=== PATIENT | female | born 1970 | race Caucasian/White ===

== ENCOUNTER 2017-06-07 19:37 | Emergency (ER) | payer OTHER ==
[2017-06-07 19:52] VITALS: BP 135/95; PULSE 89; TEMP 98.8; BMI 36.6
[2017-06-07] MEDS ORDERED: ASPIRIN 81 MG CHEWABLE TABLETS PO ONE (20:37)
--- NOTE | 2017-06-07 20:37 | PDOC ---
History of Present Illness - General History Source: Patient Exam Limitations: No Limitations <Rosa Pickens - Last Filed: 06/07/17 22:02> <Candie Maya - Last Filed: 06/08/17 02:30> - General Chief Complaint: Blood Pressure Problem Stated Complaint: Blood Pressure Problem Time Seen by Provider: 06/07/17 20:12 - History of Present Illness Initial Comments: 06/07/17 22:00 The patient is a 46 year old female with past medical history of NIDDM and hypertension who presents to the ED with complaints of chest pain that began today. She locates the pain to her sternum and states that it is non-radiating but also complains of pain in between her shoulder blades. It is not associated with any pain to her left arm, neck or jaw. She also complains of burning in her epigastrium and states that she has a history of acid reflux. The patient denies any nausea, vomiting, diarrhea, cough, SOB, urinary symptoms. (Rosa Pickens) Past History <GaryirisRosa - Last Filed: 06/07/17 22:02> - Past Medical History Asthma: No Cancer: No Cardiac Disorders: No Diabetes: Yes HTN: Yes Seizures: No Thyroid Disease: No - Psycho/Social/Smoking Cessation Hx Anxiety: No Suicidal Ideation: No Smoking History: Former smoker Have you smoked in the past 12 months: No Information on smoking cessation initiated: No Hx Alcohol Use: No Drug/Substance Use Hx: No Substance Use Type: None Hx Substance Use Treatment: No <Candie Maya - Last Filed: 06/08/17 02:30> - Past Medical History Allergies/Adverse Reactions: Allergies Allergy/AdvReac Type Severity Reaction Status Date / Time No Known Allergies Allergy Verified 06/07/17 19:52 Home Medications: Ambulatory Orders Metformin HCl [Glucophage -] 500 mg PO DAILY 03/12/14 Chlorthalidone 25 mg PO DAILY 06/07/17 Lisinopril 5 mg PO DAILY 06/07/17 Review of Systems - Review of Systems Able to Perform ROS?: Yes All Other Systems: Reviewed and Negative <Rosa Pickens - Last Filed: 06/07/17 22:02> <Candie Maya - Last Filed: 06/08/17 02:30> - Review of Systems Comments:: 06/07/17 22:00 CONSTITUTIONAL: Absent: fever, chills, diaphoresis, generalized weakness, malaise, loss of appetite HEENT: Absent: rhinorrhea, nasal congestion, throat pain, throat swelling, difficulty swallowing, mouth swelling, ear pain, eye pain, visual Changes CARDIOVASCULAR: Present: chest pain, pain in between shoulder blades Absent: syncope, palpitations, irregular heart rate, lightheadedness, peripheral edema RESPIRATORY: Absent: cough, shortness of breath, dyspnea with exertion, orthopnea, wheezing, stridor, hemoptysis GASTROINTESTINAL: Absent: abdominal pain, abdominal distension, nausea, vomiting, diarrhea, constipation, melena, hematochezia GENITOURINARY: Absent: dysuria, frequency, urgency, hesitancy, hematuria, flank pain, genital pain MUSCULOSKELETAL: Absent: joint swelling SKIN: Absent: rash, itching, pallor HEMATOLOGIC/IMMUNOLOGIC: Absent: easy bleeding, easy bruising, lymphadenopathy, frequent infections ENDOCRINE: Absent: unexplained weight gain, unexplained weight loss, heat intolerance, cold intolerance NEUROLOGIC: Absent: headache, focal weakness or paresthesias, dizziness, unsteady gait, seizure, mental status changes, bladder or bowel incontinence PSYCHIATRIC: Absent: anxiety, depression, suicidal or homicidal ideation, hallucinations. (Rosa Pickens) *Physical Exam <Rosa Pickens - Last Filed: 06/07/17 22:02> <Candie Maya - Last Filed: 06/08/17 02:30> - Vital Signs Last Vital Signs Temp Pulse Resp BP Pulse Ox 98.8 F 89 18 135/95 100 06/07/17 19:48 06/07/17 19:48 06/07/17 19:48 06/07/17 19:48 06/07/17 19:48 - Physical Exam Comments: 06/07/17 22:01 GENERAL: Well developed, well nourished. Awake and alert. No acute distress. HEENT: Normocephalic, atraumatic. PERRLA, EOMI. No conjunctival pallor. Sclera are non- icteric. Moist mucous membranes. Oropharynx is clear. NECK: Supple. Full ROM. No JVD. Carotid pulses 2+ and symmetric, without bruits. No thyromegaly. No lymphadenopathy. CARDIOVASCULAR: Regular rate and rhythm. No murmurs, rubs, or gallops. Distal pulses are 2+ and symmetric. PULMONARY: No evidence of respiratory distress. Lungs clear to auscultation bilaterally. No wheezing, rales or rhonchi. ABDOMINAL: Soft. Non-tender. Non-distended. No rebound or guarding. No organomegaly. Normoactive bowel sounds. MUSCULOSKELETAL Normal range of motion at all joints. No bony deformities or tenderness. No CVA tenderness. EXTREMITIES: No cyanosis. No clubbing. No edema. No calf tenderness. SKIN: Warm and dry. Normal capillary refill. No rashes. No jaundice. NEUROLOGICAL: Alert, awake, appropriate. Cranial nerves 2-12 intact. No deficits to light touch and temperature in face, upper extremities and lower extremities. No motor deficits in the in face, upper extremities and lower extremities. Normoreflexic in the upper and lower extremities. Normal speech. Toes are down-going bilaterally. Gait is normal without ataxia. PSYCHIATRIC: Cooperative. Good eye contact. Appropriate mood and affect. (Rosa Pickens) Heart Score/ECG Review <[facility] - Last Filed: 06/07/17 22:02> <Candie Maya - Last Filed: 06/08/17 02:30> - ECG Intrepretation Comment:: 06/07/17 22:02 Obtained at 19:57 Normal sinus at 80 bpm Unchanged from February 2014 ([facility]) ED Treatment Course - LABORATORY CBC & Chemistry Diagram: 06/07/17 20:57 06/07/17 20:57 <CelioRosa - Last Filed: 06/07/17 22:02> - LABORATORY CBC & Chemistry Diagram: 06/07/17 20:57 06/07/17 21:55 <Candie Maya - Last Filed: 06/08/17 02:30> - ADDITIONAL ORDERS Additional order review: Laboratory Results 06/08/17 06/07/17 06/07/17 01:24 21:55 21:55 INR D-Dimer Sodium Potassium Chloride Carbon Dioxide Anion Gap BUN Creatinine Creat Clearance w eGFR Random Glucose Calcium Magnesium Total Bilirubin AST ALT Alkaline Phosphatase Creatine Kinase 53 71 Troponin I < 0.02 < 0.02 B-Natriuretic Peptide Total Protein Albumin Lipase 69 L Serum , Qual 06/07/17 06/07/17 06/07/17 21:55 20:57 20:57 INR D-Dimer Sodium 139 Cancelled Potassium 3.9 Cancelled Chloride 101 Cancelled Carbon Dioxide 27 Cancelled Anion Gap 11 Cancelled BUN 10 Cancelled Creatinine 0.7 D Cancelled Creat Clearance w eGFR > 60 Cancelled Random Glucose 127 H D Cancelled Calcium 8.8 Cancelled Magnesium Cancelled Total Bilirubin 0.5 Cancelled AST 19 Cancelled ALT 29 D Cancelled Alkaline Phosphatase 110 Cancelled Creatine Kinase Cancelled Troponin I Cancelled B-Natriuretic Peptide Cancelled Total Protein 8.4 H Cancelled Albumin 3.8 Cancelled Lipase Serum , Qual Negative 06/07/17 20:57 INR 1.17 H D-Dimer 282 H Sodium Potassium Chloride Carbon Dioxide Anion Gap BUN Creatinine Creat Clearance w eGFR Random Glucose Calcium Magnesium Total Bilirubin AST ALT Alkaline Phosphatase Creatine Kinase Troponin I B-Natriuretic Peptide Total Protein Albumin Lipase Serum , Qual 06/07/17 20:57 RBC 4.44 MCV 84.9 MCHC 33.9 RDW 13.1 MPV 9.0 Neutrophils % 69.3 Lymphocytes % 23.2 Monocytes % 5.4 Eosinophils % 1.1 Basophils % 1.0 - RADIOLOGY Radiology Studies Ordered: Category Date Time Status CHEST PA & LAT [RAD] Stat Radiology 06/07/17 22:51 Taken - Medications Given in the ED: ED Medications Discontinued Medications Generic Name Dose Route Start Last Admin Trade Name Jethro PRN Reason Stop Dose Admin Al Hydroxide/Mg Hydroxide 30 ml 06/07/17 21:54 06/07/17 21:59 Mylanta Oral Suspension - PO 06/07/17 21:55 30 ml ONCE ONE Administration Aspirin 162 mg 06/07/17 20:37 06/07/17 20:57 Asa - PO 06/07/17 20:38 162 mg ONCE ONE Administration Famotidine/Sodium Chloride 50 mls @ 100 mls/hr 06/08/17 00:57 06/08/17 01:29 Pepcid 20 Mg Premixed Ivpb - IVPB 06/08/17 01:26 Not Given ONCE ONE Famotidine/Sodium Chloride 50 mls @ 100 mls/hr 06/08/17 01:28 06/08/17 01:29 Pepcid 20 Mg Premixed Ivpb - IVPB 06/08/17 01:57 100 mls/hr ONCE ONE Administration *DC/Admit/Observation/Transfer <Rosa Pickens - Last Filed: 06/07/17 22:02> <Candie Maya - Last Filed: 06/08/17 02:30> Diagnosis at time of Disposition: Chest pressure Gastroesophageal reflux disease Qualifiers: Esophagitis presence: without esophagitis Qualified Code(s): K21.9 - Gastro- esophageal reflux disease without esophagitis - Discharge Dispostion Disposition: HOME Condition at time of disposition: Stable - Patient Instructions Printed Discharge Instructions: DI for Atypical Chest Pain, DI for Gastroesophageal Reflux Disease (GERD) Additional Instructions: please followup with your primary physician - Attestations Scribe Attestion: 06/07/17 22:01 Documentation prepared by Rosa Pickens, acting as medical receptionist biller for Candie Maya MD/. (Rosa Pickens)
[2017-06-07] MEDS ORDERED: ASPIRIN 81 MG CHEWABLE TABLETS ONE (20:48)
[2017-06-07 21:14] LABS: EOSINOPHIL 1.1 % (0-4.5); MCH 28.8 pg (25.7-33.7); MCHC 33.9 g/dl (32.0-36.0); MEAN CELL VOLUME 84.9 fl (80-96); NEUTROPHILS 69.3 % (42.8-82.8); PLATELET COUNT 256 K/MM3 (134-434); RDW 13.1 % (11.6-15.6); WHITE BLOOD COUNT 9.7 K/mm3 (4.0-10.0)
[2017-06-07 21:26] LABS: INR 1.17 (0.82-1.09); PROTHROMBIN TIME (PATIENT) 12.9 SEC (9.98-11.88)
[2017-06-07] MEDS ORDERED: MAG HYDROX/AL HYDROX/SIMETH 30 ML UNIT-DOSE CUP PO ONE (21:54)
[2017-06-07] MEDS ORDERED: MAG HYDROX/AL HYDROX/SIMETH 30 ML UNIT-DOSE CUP ONE (21:57)
[2017-06-07 22:41] LABS: ALBUMIN 3.8 g/dl (3.4-5.0); ANION GAP 11 (8-16); BILIRUBIN,TOTAL 0.5 mg/dL (0.2-1.0); CALCIUM 8.8 mg/dL (8.5-10.1); CO2 27 mmol/L (21-32); CREATININE 0.7 mg/dL (0.55-1.02); GLUCOSE,RANDOM 127 mg/dL (74-106); SGPT/ALT 29 U/L (12-78); TOT PROT 8.4 g/dl (6.4-8.2)
[2017-06-07 22:44] LABS: ALK PHOS 110 U/L (45-117)
[2017-06-07 22:50] LABS: SGOT/AST 19 U/L (15-37)
[2017-06-07 22:51] LABS: CPK 71 IU/L (26-192); TROPONIN I < 0.02 ng/ml (0.00-0.05)
[2017-06-08] MEDS ORDERED: FAMOTIDINE 20 MG/50 ML IVPB 50 ML IVPB ONE ×2 (00:57→01:28)
[2017-06-08 02:03] LABS: CPK 53 IU/L (26-192)
[2017-06-08 02:04] LABS: TROPONIN I < 0.02 ng/ml (0.00-0.05)
--- NOTE | 2017-06-08 14:42 | EKG ---
Test Reason : Blood Pressure : / mmHG Vent. Rate : 080 BPM Atrial Rate : 080 BPM P-R Int : 152 ms QRS Dur : 084 ms QT Int : 378 ms P-R-T Axes : 047 006 014 degrees QTc Int : 435 ms NORMAL SINUS RHYTHM NORMAL ECG WHEN COMPARED WITH ECG OF 26-MAR-2014 12:55, NO SIGNIFICANT CHANGE WAS FOUND Confirmed by CLARITZA FAN MD ([id number]) on 06/08/2017 2:41:49 PM Referred By: Confirmed By:CLARITZA FAN MD
== END 2017-06-08 02:45 | disposition home or self-care (01) ==
LOC: JER 19:37
PROC: 3E033GC Introduction of Other Therapeutic Substance into Peripheral Vein, Percutaneous Approach (ICD-10-PCS; principal; 2017-06-07)
DX: R07.89 Other chest pain (principal); K21.9 Gastro-esophageal reflux disease without esophagitis; I10 Essential (primary) hypertension; E11.9 Type 2 diabetes mellitus without complications; Z87.891 Personal history of nicotine dependence; Z79.84 Long term (current) use of oral hypoglycemic drugs
CPT/HCPCS: 36415; 71020-TC; 80053; 83690; 84484; 84703; 85025; 85379; 85610; 93005; 93010; 99282-25

== ENCOUNTER 2019-07-23 22:11 | Emergency (ER) | payer OTHER ==
--- NOTE | 2019-07-23 22:39 | PDOC ---
History of Present Illness - General Stated Complaint: LEG PAIN Time Seen by Provider: 07/23/19 22:34 - History of Present Illness Initial Comments: 07/24/19 00:14 49 y/o hx of HTN and diabetes, presents to the ED with left leg pain and associated dizziness. She has had this pain on and off for 3-4 months now and having received multiple work ups from pcp's office, received no diagnosis and was told she had no issues. The pain started after she took a long walk earlier this morning and persisted after waking up from sleep. Pain is intermittent and throbbing and is located behind the left knee and dorsal surface of left foot. rates it as a 7/10. Exacerbated by movement or walking around.No numbness and tingling in her legs, but occasional tingling in her hands. She states that when she has pain " she feels like there is a problem with her circulation"She denies any hx of blood clots, fevers. chills, rash, trauma, loc. 07/24/19 00:18 Past History - Past Medical History Allergies/Adverse Reactions: Allergies Allergy/AdvReac Type Severity Reaction Status Date / Time No Known Allergies Allergy Verified 06/07/17 19:52 Home Medications: Ambulatory Orders metFORMIN HCL [Glucophage -] 1,000 mg PO BID 03/12/14 Lisinopril 5 mg PO DAILY 06/07/17 Asthma: No Cancer: No Cardiac Disorders: No COPD: No Diabetes: Yes HTN: Yes Seizures: No Thyroid Disease: No - Immunization History Immunization Up to Date: Yes - Psycho Social/Smoking Cessation Hx Smoking History: Unknown if ever smoked Have you smoked in the past 12 months: No Hx Alcohol Use: No Drug/Substance Use Hx: No Substance Use Type: None Hx Substance Use Treatment: No Review of Systems - Review of Systems Constitutional: No: Chills, Fever HEENTM: No: Eye Pain, Blurred Vision Respiratory: No: Cough, Shortness of Breath Cardiac (ROS): No: Chest Pain ABD/GI: No: Constipated, Diarrhea : No: Burning, Dysuria Musculoskeletal: No: Back Pain Integumentary: No: Bruising Neurological: No: Headache, Numbness *Physical Exam - Vital Signs Last Vital Signs Temp Pulse Resp BP Pulse Ox 98.1 F 85 18 126/80 100 07/23/19 22:30 07/23/19 22:30 07/23/19 22:30 07/23/19 22:30 07/23/19 22:30 - Physical Exam Comments: 07/24/19 00:21 GENERAL: Awake, alert, and fully oriented, in no acute distress HEAD: No signs of trauma, normocephalic, atraumatic EYES: PERRLA, EOMI, sclera anicteric, conjunctiva clear ENT: Auricles normal inspection, hearing grossly normal, nares patent, oropharynx clear without exudates. Moist mucosa NECK: Normal ROM, supple, no lymphadenopathy, JVD, or masses LUNGS: No distress, speaks full sentences, clear to auscultation bilaterally HEART: Regular rate and rhythm, normal S1 and S2, no murmurs, rubs or gallops, peripheral pulses normal and equal bilaterally. ABDOMEN: Soft, nontender, normoactive bowel sounds. No guarding, no rebound. No masses EXTREMITIES : Normal inspection, Normal range of motion, no edema. No clubbing or cyanosis ambulating normally. 2+ pedal pulses bilaterally. foot is warm. no diminished sensation. strength 5/5. tenderness to palpation of left calf. NEUROLOGICAL: Cranial nerves II through XII grossly intact. Normal speech, normal gait, no focal sensorimotor deficits.normal finger to nose. SKIN: Warm, Dry, normal turgor, no rashes or lesions noted ED Treatment Course - LABORATORY CBC & Chemistry Diagram: 07/24/19 00:00 07/24/19 00:00 Medical Decision Making - Medical Decision Making 07/24/19 00:22 49 y/o hx of HTN and diabetes, presents to the ED with left leg pain and associated dizziness. EKG, cbc, cmp, troponin, duplex us of left leg EKG: normal sinus rhythm, normal EKG duplex u/s of leg = no DVT's 07/26/19 09:44 *DC/Admit/Observation/Transfer Diagnosis at time of Disposition: Leg pain Qualifiers: Laterality: left Qualified Code(s): M79.605 - Pain in left leg - Discharge Dispostion Disposition: HOME Condition at time of disposition: Stable Decision to Admit order: No - Referrals - Patient Instructions Printed Discharge Instructions: DI for Leg Pain Additional Instructions: Keep your u/s appointment on Tuesday. Follow up with your primary care providers. Return to the ER if you feel worse, or develop fevers, chills, nausea, vomiting - Post Discharge Activity Discharge - Discharge Information Problems reviewed: Yes Clinical Impression/Diagnosis: Leg pain Qualifiers: Laterality: left Qualified Code(s): M79.605 - Pain in left leg Condition: Stable Disposition: HOME - Admission No - Follow up/Referral - Patient Discharge Instructions Patient Printed Discharge Instructions: DI for Leg Pain Additional Instructions: Keep your u/s appointment on Tuesday. Follow up with your primary care providers. Return to the ER if you feel worse, or develop fevers, chills, nausea, vomiting - Post Discharge Activity
[2019-07-23 23:04] VITALS: TEMP 98.1; BMI 36.6
[2019-07-24 00:15] LABS: BASO % 0.1 % (0-2.0); HEMATOCRIT 35.2 % (32.4-45.2); HEMOGLOBIN 11.6 GM/dL (10.7-15.3); LYMPH % 21.6 % (8-40); MCH 27.9 pg (25.7-33.7); MCHC 32.8 g/dl (32.0-36.0); MEAN CELL VOLUME 85.1 fl (80-96); MEAN PLT VOLUME 9.6 fl (7.5-11.1); MONO % 6.2 % (3.8-10.2); NEUT % 69.1 % (42.8-82.8); PLATELET COUNT 214 K/MM3 (134-434); RBC 4.14 M/mm3 (3.60-5.2); RDW 13.8 % (11.6-15.6); WHITE BLOOD COUNT 8.1 K/mm3 (4.0-10.0)
[2019-07-24 00:48] LABS: ALBUMIN 3.8 g/dl (3.4-5.0); BILIRUBIN,TOTAL 0.8 mg/dL (0.2-1); BLOOD UREA NITROGEN 14.3 mg/dL (7-18); CALCIUM 8.9 mg/dL (8.5-10.1); CREATININE 0.9 mg/dL (0.55-1.3); POTASSIUM 3.5 mmol/L (3.5-5.1); TOT PROT 7.9 g/dl (6.4-8.2)
--- NOTE | 2019-07-24 00:49 | PDOC ---
Attending Attestation - Resident Resident Name: Lopez Thomson - ED Attending Attestation I have performed the following: I have examined & evaluated the patient, The case was reviewed & discussed with the resident, I agree w/resident's findings & plan, Exceptions are as noted - HPI HPI: 07/24/19 00:42 this 49 yo female p/w intermittent left leg pain behind the her knee denies any trauma the leg is warm,good cap refill, no erythema,sensation intact - Physicial Exam PE: 07/24/19 01:[address] Gaetano Medeiros's physical exam - Medical Decision Making 07/24/19 01:04 review of labs shows there is a slight elevation in her LFTs. She states that on Tuesday she was already scheduled for an abdominal ultrasound. Doppler of her left leg is negative for any deep vein thrombosis pt discharged home
[2019-07-24 01:33] VITALS: BP 121/81; PULSE 74
--- NOTE | 2019-07-24 10:58 | EKG ---
Test Reason : Blood Pressure : / mmHG Vent. Rate : 079 BPM Atrial Rate : 079 BPM P-R Int : 138 ms QRS Dur : 082 ms QT Int : 396 ms P-R-T Axes : 039 -02 006 degrees QTc Int : 454 ms NORMAL SINUS RHYTHM NORMAL ECG WHEN COMPARED WITH ECG OF 07-JUN-2017 19:57, NO SIGNIFICANT CHANGE WAS FOUND Confirmed by Angel Pandya ([id number]) on 07/24/2019 10:57:44 AM Referred By: Confirmed By:Angel Pandya
== END 2019-07-24 01:29 | disposition home or self-care (01) ==
LOC: JER 22:11
DX: M79.605 Pain in left leg (principal); I10 Essential (primary) hypertension; E11.9 Type 2 diabetes mellitus without complications; Z79.84 Long term (current) use of oral hypoglycemic drugs
CPT/HCPCS: 36415; 80053; 84484; 85025; 93005; 93010; 93971-TC; 99283-25

== ENCOUNTER 2019-11-21 17:05 | Emergency (ER) | payer OTHER ==
[2019-11-21 17:19] VITALS: BP 124/85; PULSE 92; TEMP 98; BMI 34.7
[2019-11-21] MEDS ORDERED: SODIUM CHLORIDE 1,000 ML IV STA (18:20)
[2019-11-21 18:43] LABS: BASO % 0.7 % (0-2.0); EOS % 1.9 % (0-4.5); HEMATOCRIT 38.9 % (32.4-45.2); HEMOGLOBIN 12.8 GM/dL (10.7-15.3); LYMPH % 23.6 % (8-40); MCH 26.9 pg (25.7-33.7); MEAN CELL VOLUME 81.6 fl (80-96); MEAN PLT VOLUME 9.7 fl (7.5-11.1); MONO % 5.9 % (3.8-10.2); NEUT % 67.9 % (42.8-82.8); PLATELET COUNT 211 K/MM3 (134-434); RBC 4.76 M/mm3 (3.60-5.2); RDW 13.6 % (11.6-15.6)
[2019-11-21 19:08] LABS: BILIRUBIN,TOTAL 0.2 mg/dL (0.2-1); BLOOD UREA NITROGEN 16.6 mg/dL (7-18); CALCIUM 9.8 mg/dL (8.5-10.1); CREATININE 0.9 mg/dL (0.55-1.3); POTASSIUM 4.3 mmol/L (3.5-5.1); TOT PROT 8.5 g/dl (6.4-8.2)
--- NOTE | 2019-11-21 19:21 | PDOC ---
History of Present Illness - General Chief Complaint: Diarrhea Stated Complaint: HEADACHE/DIARRHEA Time Seen by Provider: 11/21/19 18:19 History Source: Patient Exam Limitations: No Limitations - History of Present Illness Initial Comments: 11/21/19 19:15 Patient is a 49-year-old female who presents to the ED with complaint of a lump in her anus that she has noticed after several weeks of straining because of constipation. She states that she has a history of constipation for many years and was tried many things but nothing was helping her. She decided to drink milk, as she is lactose intolerant, and states that the milk gives her diarrhea. She states it did help and she has evacuated completely. She states she went to the bathroom about 4 times today and feels like she is not constipated anymore. She does admit that she is concerned about the lump in her anus and that it hurts to wipe. She believes that she has a hemorrhoid secondary to straining. Pt has a history of DM and HTN. Past History - Past Medical History Allergies/Adverse Reactions: Allergies Allergy/AdvReac Type Severity Reaction Status Date / Time No Known Allergies Allergy Verified 11/21/19 17:10 Home Medications: Ambulatory Orders metFORMIN HCL [Glucophage -] 1,000 mg PO BID 03/12/14 Lisinopril 5 mg PO DAILY 06/07/17 Asthma: No Cancer: No Cardiac Disorders: No COPD: No Diabetes: Yes HTN: Yes Seizures: No Thyroid Disease: No - Immunization History Immunization Up to Date: Yes - Psycho Social/Smoking Cessation Hx Smoking History: Never smoked Have you smoked in the past 12 months: No Hx Alcohol Use: No Drug/Substance Use Hx: No Substance Use Type: None Hx Substance Use Treatment: No Review of Systems - Review of Systems Comments:: 11/21/19 19:16 - Review of Systems Able to Perform ROS?: Yes Constitutional: No: Fever, Chills, Loss of Appetite, Night Sweats, Weakness HEENTM: No: Eye Pain, Vision changes, Ear Pain, Throat Pain, Throat Swelling, Mouth Pain, Difficulty Swallowing Respiratory: No: Cough, Shortness of Breath, Wheezing, Sputum Production Cardiac (ROS): No: Chest Pain, Chest Tightness, Palpitations, Irregular Heart Beat, Edema ABD/GI: No: Nausea, Vomiting, Abdominal Pain, Diarrhea; + constipation, anal lump : No Dysuria, No Hematuria, No Frequency, No Urgency, No Vaginal Discharge Musculoskeletal: No: Muscle Pain, Back Pain, Joint Pain, Muscle Weakness, Neck Pain Integumentary: No: Lesions, Rash Neurological: No: Headache, Numbness, Tingling, Weakness, Speech Difficulties *Physical Exam - Vital Signs Last Vital Signs Temp Pulse Resp BP Pulse Ox 98 F 92 H 18 124/85 100 11/21/19 17:11 11/21/19 17:11 11/21/19 17:11 11/21/19 17:11 11/21/19 17:11 - Physical Exam 11/21/19 19:17 - Physical Exam General Appearance: Nourished, Appropriately Dressed, No Distress HEENT: EOMI, Normal Voice, No Muffled/Hoarse voice, Hearing Grossly Normal Neck: Supple, No Lymphadenopathy (R), No Lymphadenopathy (L), No Rigidity, No Decreased range of motion Respiratory/Chest: Lungs Clear, Normal Breath Sounds. No Respiratory Distress, No Accessory Muscle Use Cardiovascular: Regular Rhythm, Regular Rate, S1, S2 Gastrointestinal/Abdominal: Normal Bowel Sounds, Soft. Non-tender, No Guarding , No Rebound, No Rigidity; No reproducible abdominal tenderness, Rectal exam shows a nonthrombosed external hemorrhoid that is nontender to touch, There is a fissure appreciated to proximal aspect of the gluteal fold that is tender to touch. No sign of infection. Musculoskeletal: Normal Inspection. No Decreased Range of Motion Extremity: Normal Capillary Refill, Normal Inspection Integumentary: Normal Color, Dry. 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 NML intact, Fully Oriented, Alert, Normal Mood/Affect, Normal Response ED Treatment Course - LABORATORY CBC & Chemistry Diagram: 11/21/19 18:20 11/21/19 18:20 - ADDITIONAL ORDERS Additional order review: Laboratory Results 11/21/19 18:20 Sodium 137 Potassium 4.3 Chloride 103 Carbon Dioxide 28 Anion Gap 6 L BUN 16.6 Creatinine 0.9 Est GFR (CKD-EPI)AfAm 87.63 Est GFR (CKD-EPI)NonAf 75.61 Random Glucose 234 H Calcium 9.8 Total Bilirubin 0.2 AST 29 ALT 59 Alkaline Phosphatase 139 H Total Protein 8.5 H Albumin 4.0 Lipase 163 11/21/19 18:20 RBC 4.76 MCV 81.6 MCHC 33.0 RDW 13.6 MPV 9.7 Neutrophils % 67.9 Lymphocytes % 23.6 Monocytes % 5.9 Eosinophils % 1.9 Basophils % 0.7 D Medical Decision Making - Medical Decision Making 11/21/19 19:19 Pt is a 49 y/o female with hemorrhoids which are consistent with her recent history of constipation and straining. She has been made aware that her labs are within normal limits. She should follow up with her primary doctor and with a GI doctor for further evaluation of constipation. She should increase her fluids and eat plenty of green leafy vegetables. She understands and agrees with treatment and plan and is stable for discharge. Discharge - Discharge Information Problems reviewed: Yes Clinical Impression/Diagnosis: External hemorrhoids without complication, Acute anal fissure Constipation Qualifiers: Constipation type: other constipation type Qualified Code(s): K59.09 - Other constipation Condition: Stable Disposition: HOME - Follow up/Referral Referrals: Don Merino DO [Staff Physician] - - Patient Discharge Instructions Patient Printed Discharge Instructions: DI for Constipation, DI for Hemorrhoids , DI for Anal Fissure Additional Instructions: Drink plenty fluids and eat plenty of vegetables. You should follow-up with a GI doctor for further evaluation of constipation and your hemorrhoids. Follow- up with your primary doctor within 2 days for repeat evaluation. - Post Discharge Activity
== END 2019-11-21 19:46 | disposition home or self-care (01) ==
LOC: JER 17:05
PROC: 3E0337Z Introduction of Electrolytic and Water Balance Substance into Peripheral Vein, Percutaneous Approach (ICD-10-PCS; principal; 2019-11-21)
DX: K59.09 Other constipation (principal); K64.4 Residual hemorrhoidal skin tags; K60.2 Anal fissure, unspecified; I10 Essential (primary) hypertension; E11.9 Type 2 diabetes mellitus without complications; Z79.84 Long term (current) use of oral hypoglycemic drugs
CPT/HCPCS: 36415; 80053; 83690; 85025; 99282-25; J7030